=== PATIENT | female | born 1950 | race Asian ===

== ENCOUNTER 2016-06-04 21:45 | Emergency (ER) | payer MEDICARE ==
[2016-06-04] MEDS ORDERED: KETAMINE HCL 50 MG/1 ML 10ML VIAL ONE (21:47)
[2016-06-04 22:25] LABS: ABSOLUTE NEUTROPHIL COUNT 3.6 K/mm3 (1.8-7.7); BASO # 0.1 K/mm3 (0.0-0.2); BASO % 0.7 % (0.2-1.0); EOS # 0.2 (0.0-0.5); EOS % 2.5 % (0.9-2.9); HEMATOCRIT 39.3 % (37.0-47.0); HEMOGLOBIN 12.4 gm/l (12.0-16.0); IMM NEUT% 0.4 % (0-1); LYMPH # 4.1 (1.0-4.8); LYMPH % 48.2 % (15-45); MEAN CELL VOLUME 89.9 fl (81.0-99.0); MEAN CORPUSCULAR HEMOGLOBIN 28.4 pg (27.0-31.0); MEAN CORPUSCULAR HGB CONC 31.6 g/dl (33.0-37.0); MEAN PLATELET VOLUME 10.3 fl (7.4-10.4); MONO # 0.5 (0.0-0.8); MONO % 6.3 % (4-12); NEUT % 41.9 % (43-75); PLATELET COUNT 292 K/mm3 (130-400); RED CELL DISTRIBUTION WIDTH 12.8 % (11.5-14.5)
[2016-06-04 22:31] LABS: INR 0.91; PROTHROMBIN TIME 9.6 SECONDS (9.3-11.4)
[2016-06-04 22:35] LABS: SPECIFIC GRAVITY 1.025 (1.001-1.030); URINE BILIRUBIN NEGATIVE (NEGATIVE); URINE BLOOD 1+ (NEGATIVE); URINE GLUCOSE (UA) 2+ (NEGATIVE); URINE LEUKOCYTE ESTERASE NEGATIVE (NEGATIVE); URINE NITRITE NEGATIVE (NEGATIVE); URINE PROTEIN 1+ (NEGATIVE); URINE UROBILINOGEN NORMAL (0-1 mg/dl)
[2016-06-04] MEDS ORDERED: D5W 1,000 ML IV ONE (22:36)
[2016-06-04 22:41] LABS: URINE COLOR YELLOW
[2016-06-04 22:42] LABS: URINE APPEARANCE CLEAR
[2016-06-04 22:43] LABS: URINE BACTERIA RARE; URINE EPITHELIAL CELLS 0-2 /hpf; URINE RBC 0-3 /hpf; URINE WBC 0-2 /hpf
[2016-06-04 22:47] LABS: ALB/GLOB RATIO 1.1 (>1.0); ALBUMIN 3.9 gm/dL (3.5-5.7); CALCIUM 9.1 mg/dL (8.6-10.3)
[2016-06-04 23:03] LABS: MAGNESIUM 2.2 mg/dL (1.9-2.7)
[2016-06-04] MEDS ORDERED: CEFTRIAXONE 1 GRAM DUPLEX 50 ML IV ONE (23:17)
[2016-06-04] MEDS ORDERED: DOXYCYCLINE HYCLATE 100 MG IV VIAL ONE (23:17)
[2016-06-04] MEDS ORDERED: SODIUM CHLORIDE 0.9% 100 ML IV ONE (23:17)
[2016-06-04 23:18] LABS: ACETAMINOPHEN < 10 ug/ml; SALICYLATE < 5 mg/dl (0-30)
[2016-06-04 23:39] LABS: AMPHETAMINES/METHAMPHETAMINES NEGATIVE (NEGATIVE); COCAINE NEGATIVE (NEGATIVE); MARIJUANA NEGATIVE (NEGATIVE); METHADONE NEGATIVE (NEGATIVE); OPIATES NEGATIVE (NEGATIVE); TRICYCLIC ANTIDEPRESSANTS NEGATIVE (NEGATIVE)
[2016-06-05] MEDS ORDERED: LACTATED RINGERS 1,000 ML ONE (00:26)
[2016-06-05 05:18] LABS: ARTERIAL BLOOD GAS HCO3 19.8 mmol/L (22.0-28.0); ARTERIAL BLOOD GAS PCO2 46.1 mmHg (35.0-45.0); ARTERIAL BLOOD GAS PO2 148.4 mmHg (80.0-90.0); ARTERIAL BLOOD GAS pH 7.251 (7.350-7.450)
[2016-06-05 05:19] LABS: ARTERIAL BLOOD GAS BASE EXCESS -7.3 mmol/L (-2.0-2.0)
--- NOTE | 2016-06-05 06:43 | CT ---
HEAD W/O CON COMPARISON: None HISTORY: 66-year-old female found unresponsive. TECHNIQUE: Using a [employer] Aquilion [address] scanner, images were obtained through the head. An automated dose reduction technique was used to minimize patient radiation dose. DOSE INFORMATION: CTDIvol (mGy): 51.70 DLP(mGycm): 954.40 FINDINGS: Mass: None Intracranial Hemorrhage: None Acute Infarction: None Cerebral hemispheres: Mild peripheral atrophy. Basal ganglia: Normal Thalami: Normal Brainstem: Normal Cerebellum: Normal Ventricles: Normal Basilar cisterns: Normal Corpus callosum: Normal Pituitary fossa: Normal Middle ears and mastoid air cells: Normal Orbits and sinuses: Normal Skull and scalp: Normal Dural sinuses and vessels: Atherosclerosis of the internal carotid arteries. IMPRESSION: No acute finding. Mild peripheral atrophy, most likely age-related, along with atherosclerosis of the internal carotid arteries. Preliminary report by [facility] radiologist Prosper Reyes M.D. 06/04/2016 at 22:42
--- NOTE | 2016-06-05 07:03 | CT ---
C-SPINE W/O CON COMPARISON: None. HISTORY: 66-year-old female found down, unresponsive. Technique: Using a [employer] Aquilion [address] scanner, images obtained through the cervical spine. An automated dose reduction technique was used to minimize patient radiation dose. Dose information: CTDIvol (mGy) 12.40 DLP(mGycm): 254.30 FINDINGS: Vertebral alignment: Normal. C1-2 alignment: Normal. Craniocervical junction: Normal. Vertebral bodies: No fracture or bone destruction. Osteophytes at the adjacent endplates of C4-5, C5-6, and C6-7. Intervertebral discs: Severe narrowing, C4-5, C5-6, C6-7. Spinal canal: Spinal stenosis at C5-6 and C6-7. Facet joints and posterior arches: Bilateral multilevel facet osteoarthritis in the cervical spine and the upper thoracic spine. Prevertebral soft tissues: On the preliminary report, there was a diagnosis of retropharyngeal (prevertebral space) edema. Measuring the prevertebral space at C2-C6, the measurements exceed the mean but fall within the range of normal as compared to findings in a study reported in the [employer]orad[employer], May 2008. Partial thyroidectomy. Lung apices and superior mediastinum: Thickening of the interlobular septa. Airway: Normal. C1-2: Narrowing of the atlantodental interval. C2-3: Normal. C3-4: Normal. C4-5: Mild bilateral chronic foraminal stenosis. C5-6: Severe central and bilateral chronic foraminal stenosis. C6-7: Moderate central and bilateral chronic foraminal stenosis. C7-T1: Normal. IMPRESSION: 1. No fracture or dislocation. No acute finding. 2. I disagree with the patella report diagnosis of retropharyngeal (prevertebral soft tissue) edema. The measurements exceed the mean but fall within the range of normal as compared to findings of the study reported in [employer]orad[employer], May 2008. 3. 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 4. In the apices of both lungs, interstitial thickening, either from interstitial lung disease or interstitial edema. 5. Partial thyroidectomy. Atherosclerosis of the carotid arteries. Preliminary report by [facility] radiologist Prosper Reyes M.D., 06/04/2016 at 22:42
--- NOTE | 2016-06-05 07:04 | RAD ---
CHEST-AP BEDSIDE COMPARISON: Chest 2 views, 10/14/2015 HISTORY: Found down and unresponsive. FINDINGS: Views: Frontal chest. Lungs: Normal Heart and vessels: Normal Trachea and bronchi: Normal Mediastinum and yadira: Normal Costophrenic sulci: Normal Chest wall and bones: Normal Upper abdomen: Normal. IMPRESSION: Negative one view chest.
[2016-06-05 08:22] LABS: ABSOLUTE NEUTROPHIL COUNT 4.8 K/mm3 (1.8-7.7); BASO % 0.3 % (0.2-1.0); EOS % 0.4 % (0.9-2.9); HEMATOCRIT 31.6 % (37.0-47.0); HEMOGLOBIN 10.3 gm/l (12.0-16.0); IMM NEUT% 0.1 % (0-1); LYMPH # 1.5 (1.0-4.8); LYMPH % 22.4 % (15-45); MEAN CELL VOLUME 86.1 fl (81.0-99.0); MEAN CORPUSCULAR HEMOGLOBIN 28.1 pg (27.0-31.0); MEAN CORPUSCULAR HGB CONC 32.6 g/dl (33.0-37.0); MEAN PLATELET VOLUME 9.8 fl (7.4-10.4); MONO # 0.5 (0.0-0.8); MONO % 7.3 % (4-12); NEUT % 69.5 % (43-75); PLATELET COUNT 288 K/mm3 (130-400); RED CELL DISTRIBUTION WIDTH 12.7 % (11.5-14.5)
[2016-06-05] MEDS ORDERED: INSULIN GLARGINE (DOSE) 100 UNITS/ML UNIT ONE (08:39)
[2016-06-05 08:44] LABS: CALCIUM 8.3 mg/dL (8.6-10.3)
[2016-06-05] MEDS ORDERED: INSULIN REGULAR HUMAN (DOSE) 100 UNITS/1 ML ONE (09:36)
[2016-06-05] MEDS ORDERED: INSULIN ASPART (DOSE) 100 UNITS/1 ML SUB-Q ONE (10:00)
== END 2016-06-05 11:07 | disposition home or self-care (01) ==
LOC: ED 21:45
DX: E11.649 Type 2 diabetes mellitus with hypoglycemia without coma (principal); T68.XXXA Hypothermia, initial encounter; J18.9 Pneumonia, unspecified organism; I10 Essential (primary) hypertension; Z79.4 Long term (current) use of insulin; X31.XXXA Exposure to excessive natural cold, initial encounter
CPT/HCPCS: 83605 ×2; 83690; 83880; 80307 ×3; 82803; 85025 ×2; 82550; 82553; 87040; 80305; 80048; 80053; 83735; 85610; 84484; 81001; 36415 ×2; 71010; 72125; 70450; 87804; 36600; 96375; 99285; 96372; 51702; 96365; 96367; 82962 ×4; 93005; 99284; J7070; J7120; J7050; J1815 ×3; J0696

== ENCOUNTER 2016-08-12 08:42 | Day surgery (SDC) | payer MEDICARE ==
[~2016-08-12 08:42] MED LIST: LIDOCAINE 2% (PRES FREE) 5 ML VIAL ONE; PROPOFOL 40 ML IV ONE
[2016-08-12] MEDS ORDERED: IV START KIT ONE (08:48)
[2016-08-12] MEDS ORDERED: SODIUM CHLORIDE 0.9% 1,000 ML ONE (09:06)
[2016-08-12] MEDS ORDERED: SODIUM CHLORIDE 0.9% 1,000 ML IV SCH (10:00)
--- NOTE | 2016-08-14 13:48 | SURGPATH ---
[facility] [address] [place] [id number] Patient Name: MAXINE MCGARRY MR#: [id number] : 1950 Gender: F Specimen #: [id number] Collected: 08/12/2016 Received: 08/13/2016 Reported: 08/14/2016 Submitting Phys: RENAY YOO Copy To Phys: TAN [facility] Clinical History / Pre-Operative Diagnosis: RECTAL BLEEDING; HISTORY OF POLYPS Specimen Source / Surgical Procedure Performed: ASCENDING COLON POLYP Interpretation: COLON, ASCENDING, BIOPSY: - MULTIPLE FRAGMENTS OF TUBULAR ADENOMAS. - NO EVIDENCE OF MALIGNANCY. Electronically Signed Out Kian Mcdermott M.D., Ph.D. Gross Description: The specimen is received in a formalin filled container labeled with the patient's name and "ascending colon polyp". Four leon biopsies are 0.3-0.6 cm. Totally embedded in one cassette. Augustine Salomon, P.A. Microscopic Description: Examination of multiple levels from the ascending colon biopsy shows multiple fragments of colonic mucosa with adenomatous changes within glands and tubules. There is no evidence of malignancy. 1: 19093 D12.2
== END 2016-08-12 10:40 | disposition home or self-care (01) ==
LOC: SDC 08:42
PROVIDERS: ATTEND Surgery
PROC: 0DBL8ZX Excision of Transverse Colon, Via Natural or Artificial Opening Endoscopic, Diagnostic (ICD-10-PCS; principal; 2016-08-12)
DX: K64.4 Residual hemorrhoidal skin tags (principal); D12.3 Benign neoplasm of transverse colon; K63.89 Other specified diseases of intestine; Z86.010 Personal history of colon polyps; E11.9 Type 2 diabetes mellitus without complications; C80.0 Disseminated malignant neoplasm, unspecified; I10 Essential (primary) hypertension; Z79.82 Long term (current) use of aspirin; Z79.4 Long term (current) use of insulin; Z88.5 Allergy status to narcotic agent
CPT/HCPCS: 45385; J7030